=== PATIENT | male | born 1940 | race Asian ===

== ENCOUNTER → 2017-03-14 | Outpatient (CLI) | payer MEDICARE, OTHER ==
[~2017-03-14] MED LIST: METO50 PO; MULT-264 PO; NIFE10 PO; TAMS0.4C32 PO; TRAVZOS OD; TRAVZOS OS
== END | disposition home or self-care (01) ==
LOC: LABPV 11:20
PROVIDERS: ATTEND Urology
DX: C61 Malignant neoplasm of prostate (principal)
CPT/HCPCS: 84153

== ENCOUNTER 2017-06-10 19:36 | Emergency (ER) | payer MEDICARE, OTHER ==
[~2017-06-10] VITALS: Ht 170.2 cm; Wt 62.7 kg
[~2017-06-10 19:36] MED LIST changes: -TRAVZOS OS; +TRAVZOS OU
[2017-06-10] MEDS ORDERED: OMEP20 PO (19:59)
[2017-06-10] MEDS ORDERED: HYDR-3965 PO (19:59)
[2017-06-10] MEDS ORDERED: COLC0.6T69 PO (20:00)
[2017-06-10] MEDS ORDERED: SIMV-260 PO (20:00)
[2017-06-10] MEDS ORDERED: ASPI81 PO (20:00)
[2017-06-10] MEDS ORDERED: NIFE60TA71 PO (20:04)
[2017-06-10 21:23] LABS: APPEARANCE,URINE CLEAR (CLEAR); GLUCOSE, URINE (UA) NEGATIVE (NEGATIVE); KETONES,URINE NEGATIVE (NEGATIVE); LEUKOCYTE ESTERASE ,URINE TRACE (NEGATIVE); OCCULT BLOOD,URINE MODERATE (NEGATIVE); PH,URINE 5.5 (5.0-8.0); PROTEIN,URINE SEE CONFIRM (NEGATIVE)
[2017-06-10 21:25] LABS: ADD UA MICROSCOPIC YES
[2017-06-10 21:52] LABS: SULFOSALICYLIC ACID,URINE 3+ (Negative)
[2017-06-10 21:54] LABS: FINE GRANULAR CASTS,URINE 0-2 /LPF (None Seen); HYALINE CASTS, URINE 0-2 /LPF (None Seen); SQUAMOUS EPITHELIAL CELL,UR Few /LPF (None Seen)
[2017-06-10 22:00] VITALS: BP 121/78
== END 2017-06-10 22:31 | disposition home or self-care (01) ==
LOC: EMS 19:38
DX: N39.0 Urinary tract infection, site not specified (principal); E78.00 Pure hypercholesterolemia, unspecified; I10 Essential (primary) hypertension; K21.9 Gastro-esophageal reflux disease without esophagitis; N40.0 Benign prostatic hyperplasia without lower urinary tract symptoms; Z79.82 Long term (current) use of aspirin; Z88.8 Allergy status to other drugs, medicaments and biological substances; Z88.2 Allergy status to sulfonamides; Z88.1 Allergy status to other antibiotic agents
CPT/HCPCS: 87086; 99284

== ENCOUNTER 2017-06-16 16:22 | Emergency (ER) | payer MEDICARE, OTHER ==
[~2017-06-16] VITALS: Ht 170.2 cm; Wt 61.4 kg
[~2017-06-16 16:22] MED LIST changes: +ASPI81 PO; +COLC0.6T69 PO; +HYDR-3965 PO; -NIFE10 PO; +NIFE60TA71 PO; +OMEP20 PO; +SIMV-260 PO; -TRAVZOS OD
[2017-06-16 18:33] VITALS: BP 121/73
[2017-06-16] MEDS ORDERED: DEXAMETHASONE SOD PHOS 4 MG/ML 5 ML VIAL IM ONE (18:45)
== END 2017-06-16 19:22 | disposition home or self-care (01) ==
LOC: EMS 16:31
DX: T36.8X5A Adverse effect of other systemic antibiotics, initial encounter (principal); L50.9 Urticaria, unspecified; I10 Essential (primary) hypertension; E78.00 Pure hypercholesterolemia, unspecified; K21.9 Gastro-esophageal reflux disease without esophagitis; Z88.1 Allergy status to other antibiotic agents; Y92.89 Other specified places as the place of occurrence of the external cause
CPT/HCPCS: 96372; 99283; J1100